=== PATIENT | male | born 1965 | race Hispanic/Latino ===

== ENCOUNTER 2018-10-15 20:16 | Emergency (ER) | payer SELFPAY ==
[2018-10-15 20:16] VITALS: BMI 19.7
--- NOTE | 2018-10-15 20:57 | ED PDOC ---
HPI: Psych/Substance Abuse Time Seen by Provider: 10/15/18 20:34 Chief Complaint (Nursing): Alcohol Ingestion Chief Complaint (Provider): Alcohol Ingestion History Per: Patient, EMS History/Exam Limitations: no limitations Severity: Mild Additional Complaint(s): 53 year old male with no pertinent past medical history is brought into the ED by EMS and [place] police department (as he had an unsteady gait) for alcohol intoxication. Patient denies having any complaints. Patient states that he did drink alcohol today. PMD: None provided. Past Medical History Reviewed: Historical Data, Nursing Documentation, Vital Signs Vital Signs: Last Vital Signs Temp 96.6 F L 10/15/18 20:17 Pulse 100 H 10/15/18 20:17 Resp 16 10/15/18 20:17 BP 164/103 H 10/15/18 20:17 Pulse Ox 98 10/15/18 20:17 SATISH report viewed?: Yes - Medical History PMH: No Chronic Diseases Denies: HTN (denies) - Family History Family History: States: No Known Family Hx - Living Arrangements Living Arrangements: With Family - Social History Alcohol: > 2 Drinks/Day - Home Medications Home Medications: Ambulatory Orders Medication Instructions Recorded No Known Home Med 05/08/14 - Allergies Allergies/Adverse Reactions: Allergies Allergy/AdvReac Type Severity Reaction Status Date / Time No Known Allergies Allergy Verified 10/15/18 20:18 Review of Systems ROS Statement: Except As Marked, All Systems Reviewed And Found Negative Physical Exam - Reviewed Nursing Documentation Reviewed: Yes Vital Signs Reviewed: Yes - Physical Exam Appears: Positive for: Well, Non-toxic, No Acute Distress Head Exam: Positive for: ATRAUMATIC, NORMOCEPHALIC Skin: Positive for: Normal Color ENT: Positive for: Other (alcohol on breath) Cardiovascular/Chest: Positive for: Regular Rate, Rhythm Respiratory: Positive for: Normal Breath Sounds. Negative for: Respiratory Distress Neurologic/Psych: Positive for: Alert, Oriented (3x), Motor/Sensory Deficits (slurred speech), Gait (unsteady) - ECG O2 Sat by Pulse Oximetry: 98 (RA) Pulse Ox Interpretation: Normal Medical Decision Making Medical Decision Makin:34 Initial impression: 53 year old male with alcohol intoxication Initial plan: * 1:1 observation * reevaluation Contacted patient's Kinga Andrade, who is en-route to ED. Pt's in ED and picked up pt. Pt. with steady gait. Repeat VS improved. Given list of detox centers. Scribe Attestation: Documented by Deisi Hunt, acting as a scribe for Cristobal Yousif Provider Scribe Attestation: All medical record entries made by the Scribe were at my direction and personally dictated by me. I have reviewed the chart and agree that the record accurately reflects my personal performance of the history, physical exam, medical decision making, and the department course for this patient. I have also personally directed, reviewed, and agree with the discharge instructions and dis position. Disposition - Clinical Impression Clinical Impression: Alcohol intoxication - Patient ED Disposition Is Patient to be Admitted: No - Disposition Referrals: [facility] [Outside] Disposition: Routine/Home Disposition Time: 21:29 Condition: STABLE Additional Instructions: HAL ANDRADE, thank you for letting us take care of you today. Your provider was Dalia Brewer MD and you were treated for ETOH. The emergency medical care you received today was directed at your acute symptoms. If you were prescribed any medication, please fill it and take as directed. It may take several days for your symptoms to resolve. Return to the Emergency Department if your symptoms worsen, do not improve, or if you have any other problems. Please contact your doctor or call one of the physicians/clinics you have been referred to that are listed on the Patient Visit Information form that is included in your discharge packet. Bring any paperwork you were given at discharge with you along with any medications you are taking to your follow up visit. Our treatment cannot replace ongoing medical care by a primary care provider outside of the emergency department. Thank you for allowing the [facility] team to be part of your care today. If you had an X-Ray or CT scan: A Radiologist will review the ED reading if any change in treatment is needed we will contact you. If you had a blood, urine, or wound culture: It will take several days for the results, if any change in treatment is needed we will contact you. If you had an STI test: It will take 48 hours for the results. Please call after 1 week if you have not heard back. Instructions: Alcohol Use - When Is Drinking a Problem?, Alcohol Abuse and Alcoholism (DC), Effects of Alcohol on Your Health Forms: [employer] (Telugu)
[2018-10-15 21:05] VITALS: BP 161/67; PULSE 89; RESP 18; TEMP 98.1
[2018-10-15 21:29] VITALS: O2SAT 98
== END 2018-10-15 21:43 | disposition home or self-care (01) ==
LOC: H.ER 20:16
DX: F10.129 Alcohol abuse with intoxication, unspecified (principal)